=== PATIENT | female | born 1955 | race Caucasian/White ===

== ENCOUNTER → 2017-10-15 | Outpatient (CLI) | payer MEDICARE | LOC: M RAD 11:16 | DX: I87.393 Chronic venous hypertension (idiopathic) with other complications of bilateral lower extremity (principal); R22.42 Localized swelling, mass and lump, left lower limb | CPT/HCPCS: 93971 ==

== ENCOUNTER → 2017-11-19 | Outpatient (CLI) | payer MEDICARE ==
[2017-11-19 16:02] LABS: BASO % 0.4 % (0.0-1.0); EOS # 0.1 10^3/uL (0.0-0.50); EOS % 1.3 % (0.0-3.0); HEMATOCRIT 45.4 % (36.0-47.0); HEMOGLOBIN 15.6 g/dl (12.0-16.0); IMMATURE GRANULOCYTE % 0.3 % (0-3.0); LYMPH # 2.6 10^3/uL (1.5-4.5); LYMPH % 32.8 % (24.0-44.0); MEAN CORPUSCULAR HEMOGLOBIN 31.1 pg (27.0-33.0); MEAN CORPUSCULAR HGB CONC 34.4 g/dl (32.0-36.5); MEAN CORPUSCULAR VOLUME 90.4 fl (80.0-96.0); MONO # 0.8 10^3/uL (0.0-0.8); MONO % 10.3 % (0.0-5.0); NEUTROPHILS # 4.4 10^3/uL (1.8-7.7); NEUTROPHILS % 54.9 % (36.0-66.0); PLATELET COUNT, AUTOMATED 361 10^3/uL (150-450); RED BLOOD COUNT 5.02 10^6/uL (4.00-5.40); RED CELL DISTRIBUTION WIDTH 12.6 % (11.5-14.5)
[2017-11-19 16:25] LABS: ANION GAP 7 MEQ/L (8-16); BLOOD UREA NITROGEN 13 MG/DL (7-18); CARBON DIOXIDE LEVEL 26 MEQ/L (21-32); CHLORIDE LEVEL 107 MEQ/L (98-107); CREATININE FOR GFR 0.64 MG/DL (0.55-1.30); GLOMERULAR FILTRATION RATE > 60.0 (>45); GLUCOSE, FASTING 111 MG/DL (70-100); POTASSIUM SERUM 3.7 MEQ/L (3.5-5.1); SODIUM LEVEL 140 MEQ/L (136-145)
== END ==
LOC: M LAB 15:27
DX: I87.393 Chronic venous hypertension (idiopathic) with other complications of bilateral lower extremity (principal); R22.32 Localized swelling, mass and lump, left upper limb; F17.218 Nicotine dependence, cigarettes, with other nicotine-induced disorders
CPT/HCPCS: 80048

== ENCOUNTER → 2017-11-23 | Outpatient (CLI) | payer MEDICARE | LOC: M RAD 14:33 | DX: R22.32 Localized swelling, mass and lump, left upper limb (principal); I87.393 Chronic venous hypertension (idiopathic) with other complications of bilateral lower extremity; F17.218 Nicotine dependence, cigarettes, with other nicotine-induced disorders | CPT/HCPCS: 93971 ==

== ENCOUNTER → 2017-11-27 | Outpatient (CLI) | payer MEDICARE | LOC: M EKG 17:08 | DX: Z01.818 Encounter for other preprocedural examination (principal); I87.2 Venous insufficiency (chronic) (peripheral); Z86.79 Personal history of other diseases of the circulatory system | CPT/HCPCS: 93005 ==

== ENCOUNTER 2017-12-04 09:45 | Day surgery (SDC) | payer MEDICARE ==
[2017-12-04] MEDS: LR 1,000 ML IV (10:23)
[2017-12-04 10:36] LABS: BEDSIDE GLUCOSE 119 MG/DL (80-115)
[2017-12-04] MEDS ORDERED: PROPOFOL 200 MG/20 ML VIAL As Ordered (12:51)
[2017-12-04] MEDS ORDERED: LIDOCAINE 2% INJ 100 MG/5 ML SDV (FOR ANES.) As Ordered (12:51)
[2017-12-04] MEDS ORDERED: fentaNYL 100 MCG/2 ML INJECTION (J3010) As Ordered (13:15)
[2017-12-04] MEDS ORDERED: MIDAZOLAM INJ 2 MG/2 ML VIAL (J2250) As Ordered (13:15)
[2017-12-04] MEDS: LIDOCAINE W/EPINEPHRINE 1% 20ML VIAL As Ordered (13:20)
== END 2017-12-04 14:39 | disposition home or self-care (01) ==
LOC: M SDC 09:45
DX: I83.12 Varicose veins of left lower extremity with inflammation (principal); I83.892 Varicose veins of left lower extremity with other complications; I10 Essential (primary) hypertension; E03.9 Hypothyroidism, unspecified; E78.00 Pure hypercholesterolemia, unspecified; M79.89 Other specified soft tissue disorders; Z72.0 Tobacco use
CPT/HCPCS: 36475

== ENCOUNTER → 2017-12-14 | Outpatient (CLI) | payer MEDICARE | LOC: M RAD 12:27 | DX: M79.605 Pain in left leg (principal) | CPT/HCPCS: 93971 ==

== ENCOUNTER 2020-08-15 13:28 | Inpatient (IN) | payer MEDICARE ==
[~2020-08-15] VITALS: Ht 157.5 cm; Wt 62.6 kg
[~2020-08-15 13:28] MED LIST: ASPI81TA26 PO; HYDR25TAB PO; IBUP200T45 PO; LEVO100T5 PO; METO50TA7 PO; PRAV20TA2 PO
[2020-08-15] MEDS ORDERED: NS 1,000 ML IV SCH (14:12)
[2020-08-15] MEDS ORDERED: LORazepam 2 MG/ML VIAL IV STA (14:12)
--- NOTE | 2020-08-15 14:32 | REP ---
INDICATION: Altered Mental Status COMPARISON: None. TECHNIQUE: Axial noncontrast images from the skull base to the thoracic inlet with coronal reformations. This CT examination was performed using the following dose reduction techniques: Automated exposure control, adjustment of mA and/or kv according to the patient's size, and use of iterative reconstruction technique. FINDINGS: Age-related atrophy and microvascular ischemic changes are appreciated. The ventricles and sulci are symmetric. Delcid-white differentiation is maintained. There is no evidence for acute intracranial hemorrhage, mass/mass effect, pathology or infarction. No extra-axial fluid collection. Calvarium is intact. Paranasal sinuses and mastoid air cells are clear. IMPRESSION: Age related atrophy and microvascular ischemic changes. No acute intracranial hemorrhage, infarction, or mass/mass effect. <Electronically signed by Isak Rahman > 08/15/20 0114
--- NOTE | 2020-08-15 14:42 | REP ---
INDICATION: Altered Mental Status COMPARISON: None. TECHNIQUE: Portable AP view of the chest FINDINGS: The mediastinum and cardiac silhouette are stable and within normal limits for portable technique. The lung jim are clear without acute consolidation, effusion, or pneumothorax. Skeletal structures are intact. IMPRESSION: No acute cardiopulmonary process appreciated. <Electronically signed by Isak Rahman > 08/15/20 [id number]
[2020-08-15] MEDS ORDERED: POTA1TAB14 PO (15:02)
[2020-08-15] MEDS ORDERED: CARB25TA9 PO (15:02)
[2020-08-15] MEDS ORDERED: ROPI0.5T3 PO (15:02)
[2020-08-15] MEDS ORDERED: AMAN100T PO (15:02)
[2020-08-15 15:16] LABS: BASO % 0.3 % (0.0-1.0); EOS # 0.1 10^3/uL (0.0-0.5); EOS % 1.3 % (0.0-3.0); HEMATOCRIT 43.1 % (36.0-47.0); HEMOGLOBIN 13.7 g/dl (12.0-15.5); LYMPH # 1.2 10^3/uL (1.5-5.0); LYMPH % 13.9 % (24.0-44.0); MEAN CORPUSCULAR HGB CONC 31.8 g/dl (32.0-36.5); MEAN CORPUSCULAR VOLUME 94.5 fl (80.0-96.0); MONO # 0.9 10^3/uL (0.0-0.8); MONO % 10.1 % (0.0-5.0); NEUTROPHILS # 6.4 10^3/uL (1.5-8.5); NEUTROPHILS % 74.1 % (36.0-66.0); PLATELET COUNT, AUTOMATED 317 10^3/uL (150-450); RED BLOOD COUNT 4.56 10^6/uL (4.00-5.40); WHITE BLOOD COUNT 8.7 10^3/uL (4.0-10.0)
[2020-08-15] MEDS ORDERED: LORazepam 2 MG/ML VIAL As Ordered ONE (15:58)
[2020-08-15 16:02] LABS: ACETAMINOPHEN LEVEL < 2.0 UG/ML (10.0-30.0); ALBUMIN 3.8 GM/DL (3.2-5.2); ALT/SGPT 10 U/L (12-78); BILIRUBIN,DIRECT 0.2 MG/DL (0.0-0.2); BILIRUBIN,TOTAL 0.7 MG/DL (0.2-1.0); BLOOD UREA NITROGEN 26 MG/DL (7-18); CALCIUM LEVEL 9.4 MG/DL (8.8-10.2); CARBON DIOXIDE LEVEL 24 MEQ/L (21-32); CHLORIDE LEVEL 109 MEQ/L (98-107); CK-MB VALUE MASS 5.8 NG/ML (<3.6); CPK CREATINE PHOSPHOKINASE 174 U/L (26-192); CREATININE FOR GFR 0.81 MG/DL (0.55-1.30); ETHYL ALCOHOL (ETHANOL) < 0.003 % (0.000-0.010); GLOMERULAR FILTRATION RATE > 60.0 (>45); GLUCOSE, FASTING 85 MG/DL (70-100); MB/CK RELATIVE INDEX 3.33 (< OR =4); POTASSIUM SERUM 4.6 MEQ/L (3.5-5.1); SALICYLATE LEVEL < 1.7 MG/DL (5.0-30.0); SODIUM LEVEL 140 MEQ/L (136-145); TROPONIN I < 0.02 NG/ML (< 0.10)
[2020-08-15 17:54] LABS: ABG BASE EXCESS -2.9 (-2.0-2.0); ABG HCO3 20.3 MEQ/L (22.0-26.0); ABG O2 SATURATION 97.4 % (95.0-99.0); ABG PARTIAL PRESSURE CO2 31.1 mmHg (35.0-45.0); ABG PARTIAL PRESSURE O2 89.7 mmHg (75.0-100.0); ABG STANDARD HCO3 22.1 MEQ/L (22.0-26.0); ABG TOTAL CO2 21.3 MEQ/L (23.0-31.0); ABG pH (ARTERIAL) 7.433 UNITS (7.350-7.450)
[2020-08-15] MEDS ORDERED: IBUPROFEN 200MG TAB PO PRN (18:15)
--- NOTE | 2020-08-15 18:33 | HPEPDOC ---
General Date of Admission 08/15/2020 Date of Service: Aug 15, 2020 Attending Physician: MILLICENT SORENSEN MD Chief Complaint The patient is a 65-year-old female admitted with a reason for visit of AMS. Source: Family Exam Limitations: Other (Altered mental status) Timing/Duration: Week(s) Severity: Moderate, Severe History of Present Illness 65 yo W with a history of Parkinson's who recently had a sinemet dosing changed in the last week who presents with family reporting that she has been behaving strangely with tod hallucinations, seeing people that are not there as well as odd behavior at home. Of note, she was recently diagnosed with a UTI and finished a course antibiotics. Family reports no recent fever, sick contacts, cough, congestion, rhinorrhea, diarrhea, speech slurring, asymmetrical weakness, witnessed seizure activity or vision changes. In the ED, she was hemodynamically stable with a neurologically intact examination and had a CT head that was without hemorrhage, mass effect or evidence of infarction. CXR was without acute cardiopulmonary pathology while WBC was 8.7, Hgb 13.7, platelets 317, na 140, K 4.6, Cr 0.81, glucose, LFTS wnl, tox screen negative, CK 174, troponin wnl, TSH 1.66 and lactate 1.1. She has a pending UA given the recent history of a UTI for which she was treated to completion. She is now being admitted to medicine for encephalopathy of unclear etiology at this time, likely medication induced vs. metabolic 2/2 potential p ersisting UTI. Home Medications Scheduled Amantadine HCl (Amantadine) 100 Mg Tablet, 100 MG PO BID, (Reported) Aspirin (Aspirin EC) 81 Mg Tab, 81 MG PO DAILY, (Reported) Carbidopa/Levodopa (Carbidopa-Levodopa 25-100 Tab) 1 Each Tablet, 2 TABS PO QID, (Reported) 0730/1130/1630/2130 Levothyroxine Sodium (Levothyroxine Sodium) 100 Mcg Tab, 100 MCG PO DAILY, (Reported) Metoprolol Tartrate (Metoprolol Tartrate) 50 Mg Tab, 50 MG PO BID, (Reported) Potassium Chloride (Potassium Chloride) 20 Meq Tablet.er, 20 MEQ PO DAILY, (Reported) Pravastatin Sodium (Pravastatin Sodium) 20 Mg Tab, 20 MG PO DAILY, (Reported) Ropinirole HCl (Ropinirole HCl) 0.5 Mg Tablet, 0.5 MG PO TID, (Reported) Scheduled PRN Ibuprofen (Ibu-200) 200 Mg Tab, 200 MG PO Q4HP PRN for PAIN, (Reported) Allergies Coded Allergies: codeine (Verified Allergy, Unknown, 08/15/20) Past Medical History Medical History Parkinson's disease HTN HLD hypothroidism borderline DM2 LE venous valvular insufficiency OA Surgical History Radiofrequency ablation of L great saphenous vein hysterectomy Family History Significant Family History: No pertinent family hx Social History * Smoker: Denies Alcohol: Denies Drugs: denies Recent Travel/Sick Contacts: Denies: Recent travel, Recent sick contacts A-FIB/CHADSVASC A-FIB History Current/History of A-Fib/PAF?: No Current PO Anticoag Therapy: No Age/Risk Factor Scoring CHADSVASC: CHADSVASC Response (Comments) Value Age Risk Factor Age 65-74 years old 1 Gender Risk Factor Female 1 Hx of CHF No 0 Hx of HTN Yes 1 Hx of Stroke/TIA/or VTE No 0 Hx of Diabetes Yes 1 Hx of Vascular Disease Yes 1 Total 5 Treatment Treatment ordered: NONE Reason Anticoagulant not given: Not indicated/[id number] Review of Systems Constitutional: Denies: Chills, Fever, Night Sweats Eyes: Denies: Pain, Vision change ENT: Denies: Head Aches, Ear Pain, Dysphagia Skin: Denies: Rash, Lesions, Breakdown Pulmonary: Denies: Dyspnea, Cough Cardiovascular: Denies: Chest Pain, Palpitations, Orthopnea, Paroxysmal Noc. D yspnea, Lt Headedness Gastrointestinal: Denies: Nausea, Vomiting, Abdominal Pain, Diarrhea Genitourinary: Denies: Dysuria, Frequency, Incontinence, Retention Hematologic: Denies: Bruising, Bleeding Excessively Musculoskeletal: Denies: Neck Pain, Back Pain, Joint Pain, Muscle Pain, Spasms Neurological: Denies: Weakness, Numbness, Change in speech, Confusion Psych: Reports: Depression (recently stressed out), Memory Issues, Other Psych (tod visual hallucinations) Physical Examination General Exam: Positive: Alert, No Acute Distress, Other (obese) Eye Exam: Positive: PERRLA, Conjunctiva & lids normal, EOMI; Negative: Sclera icteric ENT Exam: Positive: Atraumatic, Pharynx Normal; Negative: Mucous membr. moist/pink (dry MM) Neck Exam: Positive: Supple; Negative: JVD, thyromegaly Chest Exam: Positive: Clear to auscultation, Normal air movement Heart Exam: Positive: Rate Normal, Regular Rhythm, Normal S1, Normal S2; Negative: Murmurs, Rubs Telemetry: Positive: No significant arrhythmia Abdomen Exam: Positive: Normal bowel sounds, Soft; Negative: Tenderness, Hepatospenomegaly Extremity Exam: Positive: Normal pulses; Negative: Clubbing, Cyanosis, Edema Skin Exam: Positive: Nl turgor and temperature, Other skin issue (flushed face, erythematous cheeks); Negative: Breakdown, Lesion Neuro Exam: Positive: Strength at 5/5 X4 ext, Cranial Nerves 3-12 NL (grossly intact but with exam c/b restless tremoring and clonic jerking), Reflexes 2+; Negative: Normal Speech (tremulous speech, no slurring), Normal Tone (hypertonic, with frequent jerking and tremulous) Vital Signs Vital Signs Date Time Temp Pulse Resp B/P (MAP) Pulse Ox O2 Delivery O2 Flow Rate FiO2 08/15/20 16:31 82 18 133/97 (109) 98 Room Air 08/15/20 13:29 98.1 Laboratory Data Labs 24H Laboratory Tests 2 08/15/20 15:02: Immature Granulocyte % (Auto) 0.3, Neutrophils (%) (Auto) 74.1H, Lymphocytes (%) (Auto) 13.9L, Monocytes (%) (Auto) 10.1H, Eosinophils (%) (Auto) 1.3, Basophils (%) (Auto) 0.3, Neutrophils # (Auto) 6.4, Lymphocytes # (Auto) 1.2L, Monocytes # (Auto) 0.9H, Eosinophils # (Auto) 0.1, Basophils # (Auto) 0.0, Nucleated Red Blood Cells % (auto) 0.0, Anion Gap 7L, Glomerular Filtration Rate > 60.0, Calcium Level 9.4, Total Bilirubin 0.7, Direct Bilirubin 0.2, Aspartate Amino Transf (AST/SGOT) 24, Alanine Aminotransferase (ALT/SGPT) 10L, Alkaline Phosphatase 135H, Ammonia < 10, Total Creatine Kinase 174, Creatine Kinase MB 5.8H, Creatine Kinase MB Relative Index 3.33, Troponin I < 0.02, Total Protein 7.0, Albumin 3.8, Albumin/Globulin Ratio 1.2, Thyroid Stimulating Hormone (TSH) 1.660, Salicylates Level < 1.7L, Acetaminophen Level < 2.0L, Ethyl Alcohol Level < 0.003 08/15/20 15:03: Lactic Acid Level 1.1 CBC/BMP Laboratory Tests 08/15/20 15:02 Assessment/Plan 65 yo W with Parkinson's who present with AMS with tod hallucinations for approximately 1 week shortly after sinemet dose adjustment as well as recently treated for a UTI. Encephalopathy: likely drug induced vs. metabolic 2/2 infection: Appears that she misunderstood total 8tabs as 8 times daily of sinemet. -CT head without acute pathology and physical examination as baseline -tox screen negative -electrolytes wnl -no leukocytosis or symptoms of ongoing infection at this time -f/u UA with reflex to culture -neurology consultation for sinemet dosing investigation, Dr. Marcelle Walterson's: -consulted neurology, on amantidine, ropinirole and sinemet dosing -reduce sinemet to 2tab QID, starting tomorrow morning. Must have been that she misunderstood total 8tabs as 8 times daily. -continue amantidine 10 BID for now -continue ropinirole0.5 TID HTN: -continue metop HLD: -continue pravastatin Hypothyroidism -continue synthroid DVT ppx: lovenox QD, TEDs and SCDs Dispo: inpatient, likely for >48h for medication adjustment with neurology cons ulted. Plan / VTE VTE Prophylaxis Ordered?: Yes MILLICENT SORENSEN MD Aug 15, 2020 18:05
[2020-08-15 20:40] VITALS: BP 132/69
--- NOTE | 2020-08-15 20:44 | ECGEPIP ---
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
[2020-08-15] MEDS: AMANTADINE 100MG TABLET PO SCH (21:27)
[2020-08-15] MEDS: rOPINIRole 0.25 MG TAB(REQUIP) PO SCH (21:28)
[2020-08-15] MEDS: METOPROLOL TART 50 MG TAB PO SCH (21:29)
[2020-08-15] MEDS: ENOXAPARIN 40MG/0.4ML SYRINGE (J1650 PER 10MG) SC SCH (21:31)
[2020-08-15] MEDS: SINEMET 25-100 MG TAB PO SCH (21:31)
[2020-08-16] MEDS: LEVOTHYROXINE 100MCG TABLET (0.1MG) PO SCH (05:45)
[2020-08-16 06:00] VITALS: BP 130/62
[2020-08-16 06:30] LABS: HEMATOCRIT 42.7 % (36.0-47.0); HEMOGLOBIN 13.8 g/dl (12.0-15.5); MEAN CORPUSCULAR HEMOGLOBIN 29.9 pg (27.0-33.0); MEAN CORPUSCULAR HGB CONC 32.3 g/dl (32.0-36.5); MEAN CORPUSCULAR VOLUME 92.6 fl (80.0-96.0); PLATELET COUNT, AUTOMATED 330 10^3/uL (150-450); RED BLOOD COUNT 4.61 10^6/uL (4.00-5.40); WHITE BLOOD COUNT 7.3 10^3/uL (4.0-10.0)
[2020-08-16 06:59] LABS: BLOOD UREA NITROGEN 22 MG/DL (7-18); CALCIUM LEVEL 8.8 MG/DL (8.8-10.2); CARBON DIOXIDE LEVEL 22 MEQ/L (21-32); CHLORIDE LEVEL 112 MEQ/L (98-107); CREATININE FOR GFR 0.58 MG/DL (0.55-1.30); GLOMERULAR FILTRATION RATE > 60.0 (>45); GLUCOSE, FASTING 79 MG/DL (70-100); MAGNESIUM LEVEL 1.9 MG/DL (1.8-2.4); POTASSIUM SERUM 3.9 MEQ/L (3.5-5.1); SODIUM LEVEL 141 MEQ/L (136-145)
[2020-08-16] MEDS: AMANTADINE 100MG TABLET PO SCH ×2 (08:54→22:47)
[2020-08-16] MEDS: POTASSIUM CHLORIDE 10 MEQ SR TABLET PO SCH (08:54)
[2020-08-16] MEDS: SINEMET 25-100 MG TAB PO SCH ×4 (08:55→22:47)
[2020-08-16] MEDS: ASPIRIN 81 MG ENTERIC TAB PO SCH (08:55)
[2020-08-16] MEDS: PRAVASTATIN 20 MG TAB PO SCH (08:55)
[2020-08-16] MEDS: rOPINIRole 0.25 MG TAB(REQUIP) PO SCH ×3 (08:55→22:47)
[2020-08-16] MEDS: METOPROLOL TART 50 MG TAB PO SCH ×2 (08:56→22:48)
--- NOTE | 2020-08-16 12:37 | IPNPDOC ---
Text Note Date of Service The patient was seen on 08/16/20. NOTE SUBJECTIVE: -No acute events -Did not sleep at all, was tremulous and wide awake, finally sleeping this morning OBJECTIVE: General: Asleep with some jerking in her sleep, NAD, awake on voice, oriented Eye Exam: PERRLA, Conjunctiva & lids normal, EOMI, MMM ENT: Atraumatic, Pharynx Normal. mucous membr. moist/pink (dry MM) Neck: Supple, no JVD, no thyromegaly Chest: Clear to auscultation, Normal air movement Heart: Rate Normal, Regular Rhythm, Normal S1, Normal S2, no m/r/g Abdomen: Normal bowel sounds, soft, NTND Extremities: Normal pulses, no LE edema Skin: Facial flushing has resolved. No lesions. Neuro: 5/5 X4 ext, increased tone throughout, diffuse tremoring has improved some with some persistent jerking, clarity of speech has improved Labs: reviewed. Stable UA was negative Assessment: 65 yo W with Parkinson's who present with AMS with tod hallucinations for approximately 1 week shortly after misunderstanding sinemet dose uptitration as well as recently treated for a UTI. Encephalopathy: likely drug induced vs. unlikely metabolic 2/2 occult infection. Misunderstood total 8tabs as 8 times daily of sinemet. -CT head without acute pathology and physical examination as baseline -tox screen negative -electrolytes wnl -no leukocytosis or symptoms of ongoing infection at this time -f/u UA with reflex to culture -neurology consultation for sinemet dosing investigation, Dr. Ibanez aware - will give her 1L NS for hydration Parkinoson's: -consulted neurology, on amantidine, ropinirole and sinemet dosing -2tab QID Sinemet. She misunderstood total 8tabs as 8 times daily. -continue amantidine 10 BID per neurology -continue ropinirole0.5 TID per neurology HTN: -continue metop HLD: -continue pravastatin Hypothyroidism -continue synthroid DVT ppx: lovenox QD, TEDs and SCDs Dispo: inpatient, likely for >48h for medication adjustment with neurology consulted. VS,Fishbone, I+O VS, Fishbone, I+O Laboratory Tests 08/15/20 15:02 08/16/20 06:11 Vital Signs Date Time Temp Pulse Resp B/P (MAP) Pulse Ox O2 Delivery O2 Flow Rate FiO2 08/16/20 08:56 71 130/62 08/16/20 06:00 98.0 20 95 08/15/20 20:40 Room Air I&O- Last 24 Hours up to 6 AM 08/16/20 06:00 Intake Total 460 ml Output Total 200 ml Balance 260 ml MILLICENT SORENSEN MD Aug 16, 2020 12:37
[2020-08-16] MEDS: NS 1,000 ML IV SCH (13:30)
[2020-08-16 14:00] VITALS: BP 107/61
[2020-08-16 22:00] VITALS: BP 126/61
[2020-08-16] MEDS: ENOXAPARIN 40MG/0.4ML SYRINGE (J1650 PER 10MG) SC SCH (22:49)
[2020-08-17] MEDS: NS 1,000 ML IV SCH (00:58)
[2020-08-17] MEDS: LEVOTHYROXINE 100MCG TABLET (0.1MG) PO SCH (05:51)
[2020-08-17 06:00] VITALS: BP 128/62
[2020-08-17 07:12] LABS: HEMATOCRIT 43.3 % (36.0-47.0); HEMOGLOBIN 13.7 g/dl (12.0-15.5); MEAN CORPUSCULAR HEMOGLOBIN 29.5 pg (27.0-33.0); MEAN CORPUSCULAR HGB CONC 31.6 g/dl (32.0-36.5); MEAN CORPUSCULAR VOLUME 93.1 fl (80.0-96.0); PLATELET COUNT, AUTOMATED 322 10^3/uL (150-450); RED BLOOD COUNT 4.65 10^6/uL (4.00-5.40); WHITE BLOOD COUNT 6.3 10^3/uL (4.0-10.0)
[2020-08-17 07:32] LABS: BLOOD UREA NITROGEN 20 MG/DL (7-18); CALCIUM LEVEL 8.5 MG/DL (8.8-10.2); CARBON DIOXIDE LEVEL 24 MEQ/L (21-32); CHLORIDE LEVEL 107 MEQ/L (98-107); GLOMERULAR FILTRATION RATE > 60.0 (>45); GLUCOSE, FASTING 66 MG/DL (70-100); POTASSIUM SERUM 4.1 MEQ/L (3.5-5.1); SODIUM LEVEL 139 MEQ/L (136-145)
[2020-08-17] MEDS: POTASSIUM CHLORIDE 10 MEQ SR TABLET PO SCH (08:49)
[2020-08-17] MEDS: ASPIRIN 81 MG ENTERIC TAB PO SCH (08:49)
[2020-08-17 08:51] VITALS: BP 115/62
[2020-08-17] MEDS: SINEMET 25-100 MG TAB PO SCH ×2 (08:51→12:51)
[2020-08-17] MEDS: PRAVASTATIN 20 MG TAB PO SCH (08:51)
[2020-08-17] MEDS: rOPINIRole 0.25 MG TAB(REQUIP) PO SCH (08:51)
[2020-08-17] MEDS: AMANTADINE 100MG TABLET PO SCH (08:51)
[2020-08-17] MEDS: METOPROLOL TART 50 MG TAB PO SCH (08:51)
--- NOTE | 2020-08-17 13:02 | DS.PDOC ---
Discharge Summary General Date of Admission Aug 15, 2020 at 17:31 Date of Discharge 08/17/2020 Discharge Summary PROCEDURES PERFORMED DURING STAY: [None]. ADMITTING DIAGNOSES: 1. Acute encephalopathy DISCHARGE DIAGNOSES: 1. Acute encephalopathy secondary to drug overdose COMPLICATIONS/CHIEF COMPLAINT: Ams,Hallucinations. HISTORY OF PRESENT ILLNESS: from admitting H&P: 65 yo W with a history of Parki nson's who recently had a sinemet dosing changed in the last week who presents with family reporting that she has been behaving strangely with tod hallucinations, seeing people that are not there as well as odd behavior at home. Of note, she was recently diagnosed with a UTI and finished a course antibiotics. Family reports no recent fever, sick contacts, cough, congestion, rhinorrhea, diarrhea, speech slurring, asymmetrical weakness, witnessed seizure activity or vision changes. In the ED, she was hemodynamically stable with a neurologically intact examination and had a CT head that was without hemorrhage, mass effect or evidence of infarction. CXR was without acute cardiopulmonary pathology while WBC was 8.7, Hgb 13.7, platelets 317, na 140, K 4.6, Cr 0.81, glucose, LFTS wnl, tox screen negative, CK 174, troponin wnl, TSH 1.66 and lactate 1.1. She has a pending UA given the recent history of a UTI for which she was treated to completion. She is now being admitted to medicine for encephalopathy of unclear etiology at this time, likely medication induced vs. metabolic 2/2 potential persisting UTI. HOSPITAL COURSE: 65 yo W with Parkinson's who present with AMS with tod halluc inations for approximately 1 week shortly after misunderstanding sinemet dose up titration. Patient was taking twice her prescribed dose of Sinemet. Medication was initially held and then resumed at 2 tabs 4 times daily. Patient's encephalopathy quickly resolved back to baseline. I discussed the case with our neurologist Dr. Nix, patient is okay to be discharged to home and follow-up with her own neurologist. Patient will be discharged on Sinemet 2 tabs 4 times daily. Dosing was discussed and emphasized with patient she verbalized understanding. She can resume the rest of her Parkinson's medications and follow-up with her neurologist. Patient was seen and cleared by physical therapy for discharge to home. DISCHARGE MEDICATIONS: Please see below. ALLERGIES: Please see below. PHYSICAL EXAMINATION ON DISCHARGE: VITAL SIGNS: Please see below. Constitutional: Awake and alert, in no apparent distress ENT: Sclera are clear. Mucosa is moist. Respiratory: Lungs CTA bilaterally. No respiratory distress. No use of accessory muscles. Cardiovascular: RRR S1 and S2 are normal, no murmur Gastrointestinal: Abdomen is soft, non distended, non tender, BS present. Musculoskeletal: No edema. Neurologic: Increased tone right more than left, fist clenched which patient tells me is normal and she gets Botox injections every 3 months. No obvious tremors or jerking at time of discharge. Speech is clear and concise. Mental Status: A&O x3, normal affect Skin: Warm, dry LABORATORY DATA: Please see below. IMAGING: CT head without contrast for altered mental status done on 08/15/2020 IMPRESSION: Age related atrophy and microvascular ischemic changes. No acute intracranial hemorrhage, infarction, or mass/mass effect. PROGNOSIS: Fair ACTIVITY: [As tolerated]. DIET: Regular diet DISPOSITION: Home DISCHARGE INSTRUCTIONS: Please follow up with your primary care physician within 1 week from discharge. If you do not have one, please follow up with us to schedule an appointment. Please keep all of your follow up appointments. Please call central to book your appointments with hospital specialists. Please take all your medications as prescribed. Please call/come to Clinic or go to the Emergency Department if - Temp >101, intractable Nausea/Vomiting, Diarrhea, Mouth sores, Headaches, Altered mental status, Seizures, sudden onset of swelling, bleeding, shortness of breath or chest pain. ITEMS TO FOLLOWUP ON ON OUTPATIENT: Hollow up with neurology DISCHARGE CONDITION: [Stable]. TIME SPENT ON DISCHARGE: Greater than 35 minutes. Vital Signs/I&Os Vital Signs Date Time Temp Pulse Resp B/P (MAP) Pulse Ox O2 Delivery O2 Flow Rate FiO2 08/17/20 08:51 78 115/62 08/17/20 06:00 98.0 18 96 08/15/20 20:40 Room Air I&O- Last 24 Hours up to 6 AM 08/17/20 06:00 Intake Total 1240 ml Output Total 100 ml Balance 1140 ml Laboratory Data Labs 24H Laboratory Tests 2 08/17/20 06:16: Nucleated Red Blood Cells % (auto) 0.0, Anion Gap 8, Glomerular Filtration Rate > 60.0, Calcium Level 8.5L CBC/BMP Laboratory Tests 08/17/20 06:16 Discharge Medications Scheduled Amantadine HCl (Amantadine) 100 Mg Tablet, 100 MG PO BID, (Reported) Aspirin (Aspirin EC) 81 Mg Tab, 81 MG PO DAILY, (Reported) Carbidopa/Levodopa (Carbidopa-Levodopa 25-100 Tab) 1 Each Tablet, 2 TABS PO QID, (Reported) 0730/1130/1630/2130 Levothyroxine Sodium (Levothyroxine Sodium) 100 Mcg Tab, 100 MCG PO DAILY, (Reported) Metoprolol Tartrate (Metoprolol Tartrate) 50 Mg Tab, 50 MG PO BID, (Reported) Potassium Chloride (Potassium Chloride) 20 Meq Tablet.er, 20 MEQ PO DAILY, (Reported) Pravastatin Sodium (Pravastatin Sodium) 20 Mg Tab, 20 MG PO DAILY, (Reported) Ropinirole HCl (Ropinirole HCl) 0.5 Mg Tablet, 0.5 MG PO TID, (Reported) Scheduled PRN Ibuprofen (Ibu-200) 200 Mg Tab, 200 MG PO Q4HP PRN for PAIN, (Reported) Allergies Coded Allergies: codeine (Verified Allergy, Unknown, 08/15/20) SIRISHA SCOTT MD Aug 17, 2020 13:02
[2020-08-17 14:00] VITALS: BP 130/60
== END 2020-08-17 15:38 | disposition home or self-care (01) | DRG 917 ==
LOC: M ED 13:28 → M ED INP 17:31 → ENRESERV 18:47 → M MSPAV 20:36
PROVIDERS: ADMIT Internal Medicine; ATTEND Family Medicine
DX: T42.8X1A Poisoning by antiparkinsonism drugs and other central muscle-tone depressants, accidental (unintentional), initial encounter (principal); G92 Toxic encephalopathy; G20 Parkinson's disease; I87.2 Venous insufficiency (chronic) (peripheral); I10 Essential (primary) hypertension; E78.5 Hyperlipidemia, unspecified; E03.9 Hypothyroidism, unspecified; R73.03 Prediabetes; M19.90 Unspecified osteoarthritis, unspecified site; Z79.899 Other long term (current) drug therapy; Z88.5 Allergy status to narcotic agent; Z79.82 Long term (current) use of aspirin

== ENCOUNTER 2020-08-31 11:49 | Inpatient (IN) | payer MEDICARE ==
[~2020-08-31] VITALS: Ht 154.9 cm; Wt 62.3 kg
[~2020-08-31 11:49] MED LIST changes: +AMAN100T PO; +CARB25TA9 PO; +POTA1TAB14 PO; +ROPI0.5T3 PO
[2020-08-31 12:42] LABS: HEMATOCRIT 42.9 % (36.0-47.0); HEMOGLOBIN 13.9 g/dl (12.0-15.5); MEAN CORPUSCULAR HEMOGLOBIN 30.3 pg (27.0-33.0); MEAN CORPUSCULAR HGB CONC 32.4 g/dl (32.0-36.5); MEAN CORPUSCULAR VOLUME 93.7 fl (80.0-96.0); PLATELET COUNT, AUTOMATED 398 10^3/uL (150-450); RED BLOOD COUNT 4.58 10^6/uL (4.00-5.40); WHITE BLOOD COUNT 8.3 10^3/uL (4.0-10.0)
[2020-08-31 13:06] LABS: AMPHETAMINES LEVEL URINE NEGATIVE (NEGATIVE); BARBITURATES URINE NEGATIVE (NEGATIVE); BENZODIAZEPINES URINE NEGATIVE (NEGATIVE); CANNABINOIDS URINE NEGATIVE (NEGATIVE); COCAINE METABOLITE URINE NEGATIVE (NEGATIVE); METHADONE URINE NEGATIVE (NEGATIVE); OPIATES URINE NEGATIVE (NEGATIVE); PHENCYCLIDINE URINE NEGATIVE (NEGATIVE)
[2020-08-31 13:30] LABS: ACETAMINOPHEN LEVEL < 2.0 UG/ML (10.0-30.0); ALBUMIN 4.1 GM/DL (3.2-5.2); ALT/SGPT 9 U/L (12-78); BILIRUBIN,DIRECT 0.3 MG/DL (0.0-0.2); BILIRUBIN,TOTAL 0.9 MG/DL (0.2-1.0); BLOOD UREA NITROGEN 19 MG/DL (7-18); CALCIUM LEVEL 9.3 MG/DL (8.8-10.2); CARBON DIOXIDE LEVEL 28 MEQ/L (21-32); CHLORIDE LEVEL 104 MEQ/L (98-107); CREATININE FOR GFR 0.66 MG/DL (0.55-1.30); ETHYL ALCOHOL (ETHANOL) < 0.003 % (0.000-0.010); GLOMERULAR FILTRATION RATE > 60.0 (>45); GLUCOSE, FASTING 88 MG/DL (70-100); SALICYLATE LEVEL < 1.7 MG/DL (5.0-30.0); SODIUM LEVEL 139 MEQ/L (136-145); TOTAL PROTEIN 7.3 GM/DL (6.4-8.2)
[2020-08-31] MEDS ORDERED: cefTRIAXone SOD 1 GM in D5W MINI-BAG PLUS 50 ML IV SCH (14:00)
--- NOTE | 2020-08-31 14:52 | HPEPDOC ---
[facility] Medical History & Physical Date of Admission Aug 31, 2020 Date of Service: Aug 31, 2020 Attending Physician: Albania Simmons MD History and Physical CHIEF COMPLAINT: hallucinations, paranoia HISTORY OF PRESENT ILLNESS: Agent is a 65-year-old female with past medical history of Parkinson's disease, hypertension, hyperlipidemia, hypothyroidism with recent admission () for altered mental status believed to be drug induced secondary to Sinemet who arrived to [facility] ER with increased hallucinations, increased paranoia from home. According to ER notes the patient states she has been seeing family members in her home (C Sr., mother) who then suddenly disappear. She's also been seeing dogs and cats. She isn't paranoid to people coming to her home and has had knives in her hands when people came to her door. States she has been having hallucinations for several weeks now, even prior to her most recent hospitalization for which she was treated for altered mental status secondary to likely unintentional overdose of Sinemet. During that last hospitalization they held her Sinemet and the patient's encephalopathy quickly resolved to baseline. Also during that hospitalization the case was discussed with the neurologist and was deemed to be okay to go back home to follow-up with her own neurologist, Dr. Dee in [place], [place]. Today the patient denies taking increased amounts of medications. Review of systems below. ER, vital signs were stable. UA was positive, CT had from last admission was negative. Psych did not see her on the last hospitalization as her symptoms have quickly resolved. A call was put through to her home neurologist and the message was left to call us back. As this does not appear to be an overdose of medication this time, it is concerning as her hallucinations appear to be occurring frequently. Perhaps this is something behavioral? Or evolution/decompensation based off of advancing Parkinson's dementia?. The p atient admits to being depressed at times and having visual hallucinations but denies homicidal or suicidal ideation, she denies ill intent when holding her knife up to people coming to her door, she denies increased tearfulness, but admits to not having good sleep. She lives alone and was able to provide me with a good history. Patient was admitted for further workup of encephalopathy poss still drug induced vs. metabolic with UTI vs. advancing Parkinson's dementia, r/o other behaviors. REVIEW OF SYSTEMS: CONSTITUTIONAL: Denies lack of energy, unexplained weight gain or weight loss, loss of appetite, fever, night sweats EYES: Denies eye drainage, eye pain, visual changes, dry/irritated eye EARS, NOSE, MOUTH, THROAT: Denies difficulty hearing, ringing in ears, mouth sores, loose teeth, sore throat, facial numbness or pain NECK: Denies swollen glands CARDIOVASCULAR: Denies irregular heartbeat, racing heart, chest pains, swelling of feet or legs, pain in legs with walking RESPIRATORY: Denies shortness of breath, night sweats, wheezing, sputum production, oxygen at home, coughing up blood, cough lasting > 1 month GASTROINTESTINAL: Denies abdominal pain, constipation, bloody stool, diarrhea, heartburn, nausea, vomiting GENITOURINARY: Denies painful urination, bloody urine, frequent urination, urgency, leaking urine, impotence MUSCULOSKELETAL: Denies joint pain, muscle pain, leg swelling INTEGUMENTARY: Denies rash, itching, new skin lesion, change in existing skin lesion, hair loss or increase, breast changes. NEUROLOGICAL: Denies headaches, dizziness, difficulty walking, numbness or tingling PSYCHIATRIC: Denies recurrent bad thoughts, mood swings PAST MEDICAL HISTORY: 1. Parkinson's dementia 2. HTN 3. HLD 4. Hypothyroidism 5. borderline DM2 6. LE venous valvular insufficiency PAST SURGICAL HISTORY: 1.Radiofrequency ablation of L great saphenous vein 2. hysterectomy FAMILY HISTORY: No pertinent family history SOCIAL HISTORY: Smoker: Denies Alcohol: Denies Drugs: Denies Recent Travel/Sick Contacts: Denies: Recent travel, Recent sick contacts ALLERGIES: Please see below. HOME MEDICATIONS: Please see below. PHYSICAL EXAMINATION: VS: Stable, see below CONSTITUTIONAL: No acute distress, resting comfortably, AAO x 3 EYES: PERRLA, EOM intact, corrective lenses in place HENT, MOUTH: Normocephalic, atraumatic, moist mucous membranes NECK: SUPPLE, no JVD, no lymphadenopathy, no carotid bruit CV: Regular rate and rhythm, S1S2 normal, no murmurs/rubs/gallops RESPIRATORY: Clear to auscultation bilaterally, no rales/rhonchi/wheezes GI: BS positive in 4 quadrants, soft, nontender, nondistended, no rebound or guarding, no organomegaly : Deferred MUSCULOSKELETAL: Normal ROM. No cyanosis, clubbing, swelling, joint deformity, extremity edema INTEGUMENTARY: Intact, no rashes, no lesions, no erythema NEUROLOGIC: Cranial Nerves II-XII are intact, no focal deficits PSYCHIATRIC: Mood and affect are normal LABORATORY DATA: Please see below IMAGING: CT head: Age related atrophy and microvascular ischemic changes. No acute intracranial hemorrhage, infarction, or mass/mass effect. ASSESSMENT: 65-year-old female with past medical history of Parkinson's disease, hypertension, hyperlipidemia, hypothyroidism with recent admission () for altered mental status admitted for further workup of encephalopathy poss still drug induced vs. metabolic with UTI vs. advancing Parkinson's dementia, r/o other behaviors. PLAN: 1. Encephalopathy poss. metabolic with UTI vs. advancing Parkinson's dementia, r/o other behaviors. Also states she has not been sleeping well so possible sleep deprivation? as component -Last admission visual hallucinations believed to be 2/2 to non-intentional sinemet overdose. Patient is AAOx 3, denies taking more sinemet than her prescribed amount -Paranoia, visual hallucinations present, occurring more frequently -UA +, UCx pending - unlikely cause of ongoing hallucinations -Starting on Ceftriaxone, sleep aid, one-to-one -F/u MRI brain -Holding carbidopa-levodopa tonight -Called Dr. Dee, neurologist to discuss case. Left message to call me back. If he does not call me back by 09/01/20, will consider consult with our neurological team and psychiatry to r/o other behavioral process also -F/u other labs HTN -VS stable -C/w home meds HLD -C/w home meds Hypothyroidism -C/w home meds Borderline DM type II -BS stable -Holding on ISS for now Hypokalemia, chronic -C/w supplement DVT px -Enoxaparin DISPOSITION: Admitted for further workup. If home neurologist does not call back , consider neuro consult here and psych. Vital Signs Vital Signs Date Time Temp Pulse Resp B/P (MAP) Pulse Ox O2 Delivery O2 Flow Rate FiO2 08/31/20 11:52 97.2 83 16 170/79 99 Laboratory Data Labs 24H Laboratory Tests 2 08/31/20 12:14: Nucleated Red Blood Cells % (auto) 0.0, Anion Gap 7L, Glomerular Filtration Rate > 60.0, Calcium Level 9.3, Total Bilirubin 0.9, Direct Bilirubin 0.3H, Aspartate Amino Transf (AST/SGOT) 15, Alanine Aminotransferase (ALT/SGPT) 9L, Alkaline Phosphatase 148H, Total Protein 7.3, Albumin 4.1, Albumin/Globulin Ratio 1.3, Thyroid Stimulating Hormone (TSH) 2.090, Salicylates Level < 1.7L, Acetaminophen Level < 2.0L, Ethyl Alcohol Level < 0.003 08/31/20 12:26: Urine Color SUAD, Urine Appearance CLOUDYH, Urine pH 5.0, Urine Specific G ravity 1.024, Urine Protein 1+H, Urine Glucose (UA) NEGATIVE, Urine Ketones 1+H, Urine Blood NEGATIVE, Urine Nitrite NEGATIVE, Urine Bilirubin NEGATIVE, Urine Urobilinogen 0.2, Urine Leukocyte Esterase 3+H, Urine WBC (Auto) 58H, Urine RBC (Auto) 14H, Urine Hyaline Casts (Auto) 0, Urine Bacteria (Auto) 1+H, Urine Squamous Epithelial Cells 6, Urine Calcium Oxalate Cryst (Auto) SMALL, Urine Mucus (Auto) LARGE, Urine Yeast-Like Cells (Auto) SMALLH, Urine Sperm (Auto) , Urine Opiates Screen NEGATIVE, Urine Methadone Screen NEGATIVE, Urine Barbiturates Screen NEGATIVE, Urine Phencyclidine Screen NEGATIVE, Urine Amphetamines Screen NEGATIVE, Urine Benzodiazepines Screen NEGATIVE, Urine Cocaine Metabolite Screen NEGATIVE, Urine Cannabinoids Screen NEGATIVE 08/31/20 14:24: CBC/BMP Laboratory Tests 08/31/20 12:14 Microbiology Microbiology 08/31/20 Urine Culture, Received Pending Home Medications Scheduled Amantadine HCl (Amantadine) 100 Mg Tablet, 100 MG PO BID Aspirin (Aspirin EC) 81 Mg Tab, 81 MG PO DAILY Carbidopa/Levodopa (Carbidopa-Levodopa 25-100 Tab) 1 Each Tablet, 2 TABS PO QID 0730/1130/1630/2130 Levothyroxine Sodium (Levothyroxine Sodium) 100 Mcg Tab, 100 MCG PO DAILY Metoprolol Tartrate (Metoprolol Tartrate) 50 Mg Tab, 50 MG PO BID Potassium Chloride (Potassium Chloride) 20 Meq Tablet.er, 20 MEQ PO DAILY Pravastatin Sodium (Pravastatin Sodium) 20 Mg Tab, 20 MG PO DAILY Ropinirole HCl (Ropinirole HCl) 0.5 Mg Tablet, 0.5 MG PO TID Scheduled PRN Ibuprofen (Ibu-200) 200 Mg Tab, 200 MG PO Q4HP PRN for PAIN Allergies Coded Allergies: codeine (Verified Allergy, Unknown, 08/15/20) A-FIB/CHADSVASC A-FIB History Current/History of A-Fib/PAF?: No Current PO Anticoag Therapy: No Age/Risk Factor Scoring CHADSVASC: CHADSVASC Response (Comments) Value Age Risk Factor Age 65-74 years old 1 Gender Risk Factor Female 1 Hx of CHF No 0 Hx of HTN Yes 1 Hx of Stroke/TIA/or VTE No 0 Hx of Diabetes Yes 1 Hx of Vascular Disease No 0 Total 4 Treatment Treatment ordered: Other Other anticoagulant ordered: Albania Fraire MD Aug 31, 2020 14:52
[2020-08-31 15:08] LABS: RSV AMPLIFICATION NEGATIVE (NEGATIVE)
[2020-08-31 15:10] LABS: INR 1.04; PROTHROMBIN TIME 13.8 SECONDS (12.5-14.3)
[2020-08-31] MEDS ORDERED: PRAV40TA2 PO (16:05)
[2020-08-31 17:15] VITALS: BP 145/62
[2020-08-31] MEDS: cefTRIAXone SOD 1 GM in D5W MINI-BAG PLUS 50 ML IV SCH (20:36)
[2020-08-31] MEDS: METOPROLOL TART 50 MG TAB PO SCH (20:36)
[2020-08-31] MEDS: AMANTADINE 100MG TABLET PO SCH (20:36)
[2020-08-31] MEDS: rOPINIRole 0.25 MG TAB(REQUIP) PO SCH (20:36)
[2020-08-31 22:00] VITALS: BP 136/70
[2020-09-01] MEDS ORDERED: RAMELTEON 8 MG TAB (ROZEREM) PO ONE (01:15)
--- NOTE | 2020-09-01 01:16 | REPVR ---
PROCEDURE INFORMATION: Exam: MR Head Without Contrast Exam date and time: 08/31/2020 9:19 PM Age: 65 years old Clinical indication: Visual disturbance; Patient HX: Hallucinations, parkinson's disease TECHNIQUE: Imaging protocol: MR of the head without contrast. COMPARISON: 1. CT Head without contrast 08/15/2020 2:17 PM 2. MRI-Brain without Contrast 07/24/2016 12:08:22 PM FINDINGS: Limitations: Motion artifact limits this study. Brain: No restricted diffusion within the brain to suggest an acute infarct. Mild magnetic susceptibility mineralization or hemosiderin identified involving the bilateral basal ganglia. There Is minimal periventricular FLAIR hyperintensity within the cerebral white matter. There is no mass effect or restricted diffusion associated with this finding. In a patient this age, this likely represents chronic small vessel ischemic disease. There is loss of the hyperintense band between the substantia nigra on the right side and the red nucleus on the axial T2 gradient echo sequence, which can be associated with the clinical history of Parkinson's disease. Evaluation of this region is limited on the current study. No cerebral edema. No intracranial mass effect. Cerebral ventricles: There is mild prominence of the ventricles and sulci, compatible with atrophy. Bones/joints: Unremarkable, as visualized. Paranasal sinuses: Normal as visualized. No acute sinusitis. Mastoid air cells: No significant mastoid effusion. Orbits: No acute abnormality visualized. Soft tissues: Unremarkable, as visualized. IMPRESSION: 1. No acute infarct. 2. Mild atrophy, which has slightly progressed. 3. Minimal white matter disease, likely representing chronic small vessel ischemic disease. 4. There is loss of the hyperintense band between the substantia nigra on the right side and the red nucleus, which can be associated with the clinical history of Parkinson's disease. Evaluation of this region is limited on the current study. 5. Additional findings described above. Electronically signed by: Anjel Dale On 09/01/2020 01:15:38 AM
[2020-09-01 06:00] VITALS: BP 129/68
[2020-09-01] MEDS: LEVOTHYROXINE 100MCG TABLET (0.1MG) PO SCH (06:04)
[2020-09-01 06:21] LABS: HEMATOCRIT 41.3 % (36.0-47.0); HEMOGLOBIN 13.6 g/dl (12.0-15.5); MEAN CORPUSCULAR HEMOGLOBIN 30.6 pg (27.0-33.0); MEAN CORPUSCULAR HGB CONC 32.9 g/dl (32.0-36.5); PLATELET COUNT, AUTOMATED 352 10^3/uL (150-450); RED BLOOD COUNT 4.44 10^6/uL (4.00-5.40); WHITE BLOOD COUNT 7.7 10^3/uL (4.0-10.0)
[2020-09-01] MEDS ORDERED: NYSTATIN 100,000 UNITS/GM TOPICAL PWD 15 GM TOP PRN (06:45)
[2020-09-01 07:01] LABS: ALBUMIN 3.5 GM/DL (3.2-5.2); ALT/SGPT 12 U/L (12-78); BILIRUBIN,TOTAL 0.6 MG/DL (0.2-1.0); BLOOD UREA NITROGEN 14 MG/DL (7-18); CALCIUM LEVEL 8.7 MG/DL (8.8-10.2); CARBON DIOXIDE LEVEL 25 MEQ/L (21-32); CHLORIDE LEVEL 106 MEQ/L (98-107); CREATININE FOR GFR 0.49 MG/DL (0.55-1.30); GLOMERULAR FILTRATION RATE > 60.0 (>45); GLUCOSE, FASTING 79 MG/DL (70-100); POTASSIUM SERUM 4.4 MEQ/L (3.5-5.1); SODIUM LEVEL 140 MEQ/L (136-145); TOTAL PROTEIN 6.5 GM/DL (6.4-8.2)
[2020-09-01] MEDS: METOPROLOL TART 50 MG TAB PO SCH ×2 (09:28→20:40)
[2020-09-01] MEDS: rOPINIRole 0.25 MG TAB(REQUIP) PO SCH ×3 (09:28→20:40)
[2020-09-01] MEDS: QUEtiapine FUMARATE 12.5 MG HALF-TAB PO SCH (09:28)
[2020-09-01] MEDS: AMANTADINE 100MG TABLET PO SCH ×2 (09:28→20:40)
[2020-09-01] MEDS: ENOXAPARIN 40MG/0.4ML SYRINGE (J1650 PER 10MG) SC SCH (09:28)
[2020-09-01] MEDS: ASPIRIN 81 MG ENTERIC TAB PO SCH (09:28)
[2020-09-01] MEDS: PRAVASTATIN 20 MG TAB PO SCH (09:29)
[2020-09-01 16:00] VITALS: BP 96/54
--- NOTE | 2020-09-01 16:00 | IPNPDOC ---
Date Seen The patient was seen on 09/01/20. Progress Note SUBJECTIVE: Discussed case with neurology (Dr. Jackson) who suggested low dose seroquel BID for hallucinations (poss Lewy Body dementia vs. hallucinations 2/2 to sinemet which patient needs for movement). PT ordered. D/karen sitter as patient has not had hallucinations since admission. Denies chest pain, SOB, fevers, chills, hallucinations (visual or auditory), n/v, lightheadedness. OBJECTIVE: PHYSICAL EXAMINATION: VS: Stable, see below CONSTITUTIONAL: No acute distress, resting comfortably, AAO x 3 EYES: PERRLA, EOM intact, corrective lenses in place HENT, MOUTH: Normocephalic, atraumatic, moist mucous membranes NECK: SUPPLE, no JVD, no lymphadenopathy, no carotid bruit CV: Regular rate and rhythm, S1S2 normal, no murmurs/rubs/gallops RESPIRATORY: Clear to auscultation bilaterally, no rales/rhonchi/wheezes GI: BS positive in 4 quadrants, soft, nontender, nondistended, no rebound or guarding, no organomegaly : Deferred MUSCULOSKELETAL: Normal ROM. No cyanosis, clubbing, swelling, joint deformity, extremity edema INTEGUMENTARY: Intact, no rashes, no lesions, no erythema NEUROLOGIC: Cranial Nerves II-XII are intact, no focal deficits PSYCHIATRIC: Mood and affect are normal LABORATORY DATA: Please see below IMAGING: MRI brain: 1. No acute infarct. 2. Mild atrophy, which has slightly progressed. 3. Minimal white matter disease, likely representing chronic small vessel ischemic disease. 4. There is loss of the hyperintense band between the substantia nigra on the right side and the red nucleus, which can be associated with the clinical history of Parkinson's disease. Evaluation of this region is limited on the current study. CT head: Age related atrophy and microvascular ischemic changes. No acute intracranial hemorrhage, infarction, or mass/mass effect. ASSESSMENT: 65-year-old female with past medical history of Parkinson's disease, hypertension, hyperlipidemia, hypothyroidism with recent admission () for altered mental status admitted for further workup of encephalopathy poss still drug induced vs. metabolic with UTI vs. advancing Parkinson's dementia, r/o other behaviors. PLAN: 1. Hallucinations, paranoia 2/2 to advancing Parkinson's dementia vs. Lewy body dementia vs. 2/2 to sinemet. -Last admission visual hallucinations believed to be 2/2 to non-intentional sinemet overdose. Patient is AAOx 3, denies taking more sinemet than her prescribed amount -Paranoia, visual hallucinations present, occurring more frequently -UA +, UCx pending - unlikely cause of ongoing hallucinations -MRI brain: above -Discussed case with neurology today who said hallucination could be 2/2 to Lewy body dementia vs. side effect of sinemet. Unfortunately, when patient is off sinemet she has severe motor issues. He recommended starting low dose seroquel in AM, 25 mg PO HS to see if hallucinations improve. If does well overnight, consider discharging in AM with this new med. -Holding off on psych consult and will see how patient does with regimen above -1:1 sitter discontinued HTN -VS stable -C/w home meds HLD -C/w home meds Hypothyroidism -C/w home meds Borderline DM type II -BS stable -Holding on ISS for now Hypokalemia, chronic -C/w supplement DVT px -Enoxaparin DISPOSITION: Will keep overnight. If tolerates seroquel without s/e or incr hallucinations, will consider d/c in the AM to f/u with PCP and neurologist o/p. VS, I&O, [facility] Vital Signs/I&O Vital Signs Date Time Temp Pulse Resp B/P (MAP) Pulse Ox O2 Delivery O2 Flow Rate FiO2 09/01/20 09:28 66 129/68 09/01/20 06:00 98.7 14 96 Room Air I&O- Last 24 Hours up to 6 AM 09/01/20 06:00 Intake Total 360 ml Output Total 150 ml Balance 210 ml Laboratory Data 24H LABS Laboratory Tests 2 09/01/20 05:37: Nucleated Red Blood Cells % (auto) 0.0, Anion Gap 9, Glomerular Filtration Rate > 60.0, Calcium Level 8.7L, Total Bilirubin 0.6, Aspartate Amino Transf (AST/SGOT) 17, Alanine Aminotransferase (ALT/SGPT) 12, Alkaline Phosphatase 130H, Total Protein 6.5, Albumin 3.5, Albumin/Globulin Ratio 1.2 CBC/BMP Laboratory Tests 09/01/20 05:37 Microbiology Microbiology 08/31/20 Urine Culture - Final, Complete Current Medications Current Medications Medications (Trade) Dose Ordered Sig/Deanna Route PRN Reason Start Time Stop Time Status Last Admin Dose Admin Amantadine HCl (Symmetrel) 100 mg BID PO 08/31/20 21:00 09/01/20 09:28 Aspirin (Ecotrin) 81 mg DAILY PO 09/01/20 09:00 09/01/20 09:28 Ceftriaxone Sodium 1 gm/ Dextrose 50 ml @ 100 mls/hr Q24H IV 08/31/20 14:00 08/31/20 20:17 DC Ceftriaxone Sodium 1 gm/ Dextrose 50 ml @ 100 mls/hr Q24H IV 08/31/20 21:00 08/31/20 20:36 Enoxaparin Sodium (Lovenox) 40 mg DAILY SC 09/01/20 09:00 09/01/20 09:28 Home Med (Med Rec Complete!) ASDIRECTED XX 08/31/20 16:15 08/31/20 16:06 DC Levothyroxine Sodium (Synthroid) 100 mcg DAILY@0600 PO 09/01/20 06:00 09/01/20 06:04 Metoprolol Tartrate (Lopressor) 50 mg BID PO 08/31/20 21:00 09/01/20 09:28 Nystatin (Mycostatin Powder, Nystop) To be applied to p... BIDP PRN TOP RASH 09/01/20 06:45 Pravastatin Sodium (Pravachol) 40 mg DAILY PO 09/01/20 09:00 09/01/20 09:29 Quetiapine Fumarate (SEROquel) 12.5 mg QAM PO 09/01/20 09:00 09/01/20 09:28 Quetiapine Fumarate (SEROquel) 25 mg QHS PO 09/01/20 21:00 Ropinirole HCl (Requip) 0.5 mg TID PO 08/31/20 21:00 09/01/20 09:28 Allergies Coded Allergies: codeine (Verified Allergy, Unknown, 08/15/20) Albania Simmons MD Sep 01, 2020 16:00
[2020-09-01] MEDS: cefTRIAXone SOD 1 GM in D5W MINI-BAG PLUS 50 ML IV SCH (20:39)
[2020-09-01] MEDS ORDERED: QUEtiapine FUMARATE 25 MG TAB PO SCH (21:00)
[2020-09-01 22:00] VITALS: BP 99/56
[2020-09-02] MEDS: LEVOTHYROXINE 100MCG TABLET (0.1MG) PO SCH (05:29)
[2020-09-02 05:30] VITALS: BP 137/64
[2020-09-02] MEDS ORDERED: QUET1TAB7 PO (08:03)
[2020-09-02 08:39] LABS: HEMATOCRIT 40.9 % (36.0-47.0); HEMOGLOBIN 13.3 g/dl (12.0-15.5); MEAN CORPUSCULAR HEMOGLOBIN 30.4 pg (27.0-33.0); MEAN CORPUSCULAR HGB CONC 32.5 g/dl (32.0-36.5); MEAN CORPUSCULAR VOLUME 93.6 fl (80.0-96.0); PLATELET COUNT, AUTOMATED 339 10^3/uL (150-450); RED BLOOD COUNT 4.37 10^6/uL (4.00-5.40)
[2020-09-02 08:59] LABS: ALBUMIN 3.2 GM/DL (3.2-5.2); ALT/SGPT 11 U/L (12-78); BILIRUBIN,TOTAL 0.5 MG/DL (0.2-1.0); BLOOD UREA NITROGEN 11 MG/DL (7-18); CALCIUM LEVEL 8.7 MG/DL (8.8-10.2); CARBON DIOXIDE LEVEL 28 MEQ/L (21-32); CHLORIDE LEVEL 107 MEQ/L (98-107); CREATININE FOR GFR 0.54 MG/DL (0.55-1.30); GLOMERULAR FILTRATION RATE > 60.0 (>45); GLUCOSE, FASTING 82 MG/DL (70-100); POTASSIUM SERUM 3.9 MEQ/L (3.5-5.1); SODIUM LEVEL 143 MEQ/L (136-145); TOTAL PROTEIN 6.1 GM/DL (6.4-8.2)
[2020-09-02] MEDS: ENOXAPARIN 40MG/0.4ML SYRINGE (J1650 PER 10MG) SC SCH (09:00)
[2020-09-02] MEDS: ASPIRIN 81 MG ENTERIC TAB PO SCH (09:38)
[2020-09-02] MEDS: rOPINIRole 0.25 MG TAB(REQUIP) PO SCH ×2 (09:38→15:09)
[2020-09-02] MEDS: QUEtiapine FUMARATE 12.5 MG HALF-TAB PO SCH (09:38)
[2020-09-02] MEDS: AMANTADINE 100MG TABLET PO SCH (09:38)
[2020-09-02 09:39] VITALS: BP 137/64
[2020-09-02] MEDS: METOPROLOL TART 50 MG TAB PO SCH (09:39)
[2020-09-02] MEDS: PRAVASTATIN 20 MG TAB PO SCH (09:39)
[2020-09-02 14:00] VITALS: BP 128/74
--- NOTE | 2020-09-02 17:44 | DS.PDOC ---
Discharge Summary General Date of Admission Aug 31, 2020 at 13:59 Date of Discharge 09/02/20 Attending Physician: Albania Simmons MD Discharge Summary HISTORY OF PRESENT ILLNESS: Agent is a 65-year-old female with past medical history of Parkinson's disease, hypertension, hyperlipidemia, hypothyroidism with recent admission () for altered mental status believed to be drug induced secondary to Sinemet who arrived to [facility] ER with increased hallucinations, increased paranoia from home. According to ER notes the patient states she has been seeing family members in her home (C Sr., mother) who then suddenly disappear. She's also been seeing dogs and cats. She isn't paranoid to people coming to her home and has had knives in her hands when people came to her door. States she has been having hallucinations for several weeks now, even prior to her most recent hospitalization for which she was treated for altered mental status secondary to likely unintentional overdose of Sinemet. During that last hospitalization they held her Sinemet and the patient's encephalopathy quickly resolved to baseline. Also during that hospitalization the case was discussed with the neurologist and was deemed to be okay to go back home to follow-up with her own neurologist, Dr. Dee in [place], [place]. Today the patient denies taking increased amounts of medications. Review of systems below. ER, vital signs were stable. UA was positive, CT had from last admission was negative. Psych did not see her on the last hospitalization as her symptoms have quickly resolved. A call was put through to her home neurologist and the message was left to call us back. As this does not appear to be an overdose of medication this time, it is concerning as her hallucinations appear to be occurring frequently. Perhaps this is something behavioral? Or evolutio n/decompensation based off of advancing Parkinson's dementia?. The patient admits to being depressed at times and having visual hallucinations but denies homicidal or suicidal ideation, she denies ill intent when holding her knife up to people coming to her door, she denies increased tearfulness, but admits to not having good sleep. She lives alone and was able to provide me with a good history. Patient was admitted for further workup of encephalopathy poss still drug induced vs. metabolic with UTI vs. advancing Parkinson's dementia, r/o other behaviors. HOSPITAL COURSE: Discussed case with neurology (Dr. Jackson) who suggested low dose seroquel BID for hallucinations (poss Lewy Body dementia vs. hallucinations 2/2 to sinemet which patient needs for movement). PT ordered and recommended o/p referral. D/karen sitter as patient has not had hallucinations since admission. She tolerated seroquel well. She was discharged home on 09/02/20 to f/u with both her PCP and neurologist as already scheduled. Denies chest pain, SOB, fevers, chills, hallucinations (visual or auditory), n/v, lightheadedness at discharge. PAST MEDICAL HISTORY: 1. Parkinson's dementia 2. HTN 3. HLD 4. Hypothyroidism 5. borderline DM2 6. LE venous valvular insufficiency PAST SURGICAL HISTORY: 1.Radiofrequency ablation of L great saphenous vein 2. hysterectomy FAMILY HISTORY: No pertinent family history SOCIAL HISTORY: Smoker: Denies Alcohol: Denies Drugs: Denies Recent Travel/Sick Contacts: Denies: Recent travel, Recent sick contacts PHYSICAL EXAMINATION: VS: Stable, see below CONSTITUTIONAL: No acute distress, resting comfortably, AAO x 3 EYES: PERRLA, EOM intact, corrective lenses in place HENT, MOUTH: Normocephalic, atraumatic, moist mucous membranes NECK: SUPPLE, no JVD, no lymphadenopathy, no carotid bruit CV: Regular rate and rhythm, S1S2 normal, no murmurs/rubs/gallops RESPIRATORY: Clear to auscultation bilaterally, no rales/rhonchi/wheezes GI: BS positive in 4 quadrants, soft, nontender, nondistended, no rebound or guarding, no organomegaly : Deferred MUSCULOSKELETAL: Normal ROM. No cyanosis, clubbing, swelling, joint deformity, extremity edema INTEGUMENTARY: Intact, no rashes, no lesions, no erythema NEUROLOGIC: Cranial Nerves II-XII are intact, no focal deficits PSYCHIATRIC: Mood and affect are normal LABORATORY DATA: Please see below IMAGING: MRI brain: 1. No acute infarct. 2. Mild atrophy, which has slightly progressed. 3. Minimal white matter disease, likely representing chronic small vessel ischemic disease. 4. There is loss of the hyperintense band between the substantia nigra on the right side and the red nucleus, which can be associated with the clinical history of Parkinson's disease. Evaluation of this region is limited on the current study. CT head: Age related atrophy and microvascular ischemic changes. No acute intracranial hemorrhage, infarction, or mass/mass effect. ASSESSMENT: 65-year-old female with past medical history of Parkinson's disease, hypertension, hyperlipidemia, hypothyroidism with recent admission () for altered mental status admitted for further workup of encephalopathy poss still drug induced vs. metabolic with UTI vs. advancing Parkinson's dementia, r/o other behaviors. PLAN: 1. Hallucinations, paranoia 2/2 to advancing Parkinson's dementia vs. Lewy body dementia vs. 2/2 to sinemet. -Last admission visual hallucinations believed to be 2/2 to non-intentional sinemet overdose. Patient is AAOx 3, denies taking more sinemet than her prescribed amount -Paranoia, visual hallucinations, occurring more frequently as op -MRI brain: above -Discussed case with neurology today who said hallucination could be 2/2 to Lewy body dementia vs. side effect of sinemet. Unfortunately, when patient is off sinemet she has severe motor issues. He recommended starting low dose seroquel BID and this seemed to help over 24 hours. -Will d/c with low dose seroquel and advised to f/u with both PCP and neuro logist as scheduled. HTN -VS stable -C/w home meds HLD -C/w home meds Hypothyroidism -C/w home meds Borderline DM type II -BS stable Hypokalemia, chronic -C/w supplement DISPOSITION: D/c today to f/u with PCP and neurologist o/p. TIME SPENT ON DISCHARGE: Greater than 30 minutes. Vital Signs/I&Os Vital Signs Date Time Temp Pulse Resp B/P (MAP) Pulse Ox O2 Delivery O2 Flow Rate FiO2 09/02/20 14:00 98.7 63 17 128/74 (92) 98 Room Air I&O- Last 24 Hours up to 6 AM 09/02/20 06:00 Intake Total 920 ml Output Total 2185 ml Balance -1265 ml Laboratory Data Labs 24H Laboratory Tests 2 09/01/20 20:45: Bedside Glucose (Misc Panel) 88 09/02/20 06:15: Bedside Glucose (Misc Panel) 78L 09/02/20 07:48: Nucleated Red Blood Cells % (auto) 0.0, Anion Gap 8, Glomerular Filtration Rate > 60.0, Calcium Level 8.7L, Total Bilirubin 0.5, Aspartate Amino Transf (AST/SGOT) 13, Alanine Aminotransferase (ALT/SGPT) 11L, Alkaline Phosphatase 123H, Total Protein 6.1L, Albumin 3.2, Albumin/Globulin Ratio 1.1L 09/02/20 11:16: Bedside Glucose (Misc Panel) 125H CBC/BMP Laboratory Tests 09/02/20 07:48 FSBS Laboratory Tests Test 09/01/20 20:45 09/02/20 06:15 09/02/20 11:16 Range/Units Bedside Glucose (Misc Panel) 88 78 125 80-115 MG/DL Microbiology Microbiology 08/31/20 Urine Culture - Final, Complete Discharge Medications Scheduled Amantadine HCl (Amantadine) 100 Mg Tablet, 100 MG PO BID, (Reported) Aspirin (Aspirin EC) 81 Mg Tab, 81 MG PO DAILY, (Reported) Carbidopa/Levodopa (Carbidopa-Levodopa 25-100 Tab) 1 Each Tablet, 2 TABS PO QID, (Reported) 0730/1130/1630/2130 Levothyroxine Sodium (Levothyroxine Sodium) 100 Mcg Tab, 100 MCG PO DAILY, (Rep orted) Metoprolol Tartrate (Metoprolol Tartrate) 50 Mg Tab, 50 MG PO BID, (Reported) Pravastatin Sodium (Pravastatin Sodium) 40 Mg Tablet, 40 MG PO DAILY, (Reported) Quetiapine Fumarate (Quetiapine Fumarate) 25 Mg Tablet, 12.5 MG PO BID Ropinirole HCl (Ropinirole HCl) 0.5 Mg Tablet, 0.5 MG PO TID, (Reported) Scheduled PRN Ibuprofen (Ibu-200) 200 Mg Tab, 200 MG PO Q4HP PRN for PAIN, (Reported) Allergies Coded Allergies: codeine (Verified Allergy, Unknown, 08/15/20) Albania Simmons MD Sep 02, 2020 17:44
== END 2020-09-02 16:05 | disposition home or self-care (01) | DRG 125 ==
LOC: M ED 11:49 → M ED INP 13:59 → ENRESERV 14:35 → M MS5PR 17:53
PROVIDERS: ADMIT Internal Medicine; ATTEND Internal Medicine
DX: R44.1 Visual hallucinations (principal); G20 Parkinson's disease; F03.90 Unspecified dementia, unspecified severity, without behavioral disturbance, psychotic disturbance, mood disturbance, and anxiety; T42.8X5A Adverse effect of antiparkinsonism drugs and other central muscle-tone depressants, initial encounter; I10 Essential (primary) hypertension; E78.5 Hyperlipidemia, unspecified; E03.9 Hypothyroidism, unspecified; R73.03 Prediabetes; I87.2 Venous insufficiency (chronic) (peripheral); E87.6 Hypokalemia; Z79.82 Long term (current) use of aspirin; Z79.899 Other long term (current) drug therapy; Z88.5 Allergy status to narcotic agent; Z20.828 Contact with and (suspected) exposure to other viral communicable diseases